=== PATIENT | female | born 1930 | race Caucasian/White ===

== ENCOUNTER → 2019-08-31 | Day surgery (SDC) | payer MEDICARE, OTHER ==
[2019-08-25 15:27] LABS: BASOPHILS # (AUTO) 0.1 (0.0-0.1); BASOPHILS % 0.7 % (0.0-1.0); EOSINOPHILS # (AUTO) 0.2 (0.0-0.4); EOSINOPHILS % 2.6 % (0.0-6.0); HEMATOCRIT 39.4 % (34.2-44.1); HEMOGLOBIN 12.8 g/dL (12.0-16.0); LYMPHOCYTES # (AUTO) 2.5 (1.0-3.2); LYMPHOCYTES % 34.3 % (18.0-39.1); MEAN CORPUSCULAR HGB CONC 32.5 g/dL (31-35); MEAN CORPUSCULAR VOLUME 89.3 fL (81-99); MONOCYTES # (AUTO) 0.7 (0.2-0.8); MONOCYTES % 9.7 % (4.4-11.3); NEUTROPHILS # (AUTO) 3.8 (2.1-6.9); NEUTROPHILS % 52.4 % (38.7-80.0); PLATELET COUNT 264 x10e3/uL (140-360); RED BLOOD COUNT 4.41 x10e6/uL (3.6-5.1); RED CELL DISTRIBUTION WIDTH 12.8 % (11.7-14.4)
[2019-08-25 15:43] LABS: ANION GAP 12.6 mmol/L (8-16); CALCIUM 9.5 mg/dL (8.4-10.2); CREATININE, SERUM 1.06 mg/dL (0.57-1.11); POTASSIUM 3.6 mmol/L (3.5-5.1)
--- NOTE | 2019-08-25 15:59 | Diagnostic Imaging Report ---
EXAM: CHEST 2 VIEWS DATE: 08/25/2019 3:40 PM INDICATION: Preoperative evaluation COMPARISON: None FINDINGS: The trachea is midline. Mildly increased opacities noted within the lung bases suggestive of atelectasis. The lungs are otherwise symmetrically expanded without evidence for large focal consolidation, pneumothorax, or significant pleural effusion. The cardiomediastinal silhouette is within normal limits. The thoracic aorta is tortuous and contains atherosclerotic calcifications. Degenerative changes and kyphosis noted of the visualized spine. No acute osseous abnormality is identified. The surrounding soft tissues are unremarkable. IMPRESSION: No acute cardiopulmonary process identified. Signed by: Dr. Jorge Quiroga MD on 08/25/2019 3:56 PM
[~2019-08-31] MED LIST: AMLODIPINE BESY10 MG PO; CEFAZOLIN SOD 1 GM/NS 50ML 100 ML IV ONE; DOCUSATE SODIU100 MG PO; LIDOCAINE HCL 2% LOCAL INJ 5 ML SDV VIAL INJ ONE; OLANZAPINE5 MG PO; PROPOFOL IV EMULSION 10 MG/ML 20 ML VIAL ONE; REMERON15 MG PO; ROBITUSSIN COU118 M4 PO; SENNA LAX8.6 MG PO; SEROQUEL25 MG PO; SEVOFLURANE INHAL SOLN 250 ML PEN BTL ONE; TRAZODONE HCL50 MG PO; ULTRAM50 MG PO
[2019-08-31 09:30] VITALS: BP 120/69
--- NOTE | 2019-08-31 14:08 | Operative Report ---
DATE OF PROCEDURE: 08/31/2019 SURGEON: OLIVE KOHLI MD LOCATION: Place of surgery is [facility]. HISTORY: The patient is an 88-year-old female who sustained a trip and fall sustaining a complete and displaced comminuted midshaft, radial shaft fracture. After a lengthy and in-depth discussion with the patient's guardian, as well as the guardian's , they have elected to proceed on with conservative treatment and they only wished to stabilize the fracture with a closed reduction and short and long arm casting. The risks and benefits of surgery have been outlined to both of them and the patient's guardian consisting but not limited to the following: Infection, blood loss, nerve, vessel or tendon injury. More importantly, given the close reduction and conservative treatment that the fracture itself may not be perfectly aligned that she still may have underlying deformity, again the risks of nonunion and malunion were conveyed to them, skin breakdown from the cast. The possible need for additional surgery, and informed consent was obtained. The patient was seen and identified in the preoperative holding area. The patient's guardian, was there and present. The patient's right forearm and upper arm were marked by myself and she agreed along with nursing staff. The patient was then brought back to the operative suite. Time-out was taken for Alicia Princess for a closed reduction with manipulation under anesthesia of the right radial shaft with placement of a long-arm cast. All were in agreement including nursing staff, anesthesia and myself. After the patient was successfully intubated and relaxed, C-arm fluoroscopy was brought in to examine the fracture. Once again, there was some marked comminuted fracture of the mid radial shaft with volar apex angulation. The patient's right forearm and upper arm were sterilely prepped and draped and cleaned with alcohol. The patient had complete healing of abrasions over her wrist and ulnar styloid. There were no other open abrasions or lesions. [place] was placed on and then the patient was placed in multiple layers of [place] from the hand and wrist all the way up to the upper arm beneath the axilla and the entire extremity was well padded. Maintaining neutral flexion of the elbow, I was able to do a closed reduction, reducing the deformity as best as I could given the marked comminution. Upon which time, after the longitudinal traction, manipulation and reduction, the patient was placed in a well-molded long-arm cast. The long arm cast reduction was maintained with three-point fixation and was held reduce and confirm under fluoroscopy. There was significant marked improvement in regard to the angulation, however, the patient still has some volar apex angulation and just some mild shortening given the oblique nature of the fracture and comminution, but otherwise marked improvement overall. In the cast, the fracture was stable. The patient was then successfully extubated and transferred to the PACU. PREOPERATIVE DIAGNOSIS: Comminuted displaced right radial shaft fracture. POSTOPERATIVE DIAGNOSIS: Comminuted displaced right radial shaft fracture. PROCEDURES: 1. Closed reduction with manipulation under anesthesia of the right radial shaft. 2. Placement of a long-arm cast of the right upper arm for displaced right radial shaft fracture. ANESTHESIA: General. ESTIMATED BLOOD LOSS: None. COMPLICATIONS: None. CONDITION: Stable to PACU. The patient was seen in PACU. Dressings were clean and dry. Capillary refills are brisk. Her pain is well controlled. The intraoperative findings were reviewed and discussed with the patient's guardian. The patient is to maintain cast care with elevation, not to get the cast wet, to keep the arm up elevated to control her edema. The patient will follow up in [facility] in 6 to 8 weeks, at which time we will remove the cast and repeat x-rays, two views of her right forearm. The patient was discharged home with [place] for pain control. All questions were answered to the framing carpenter and guardian's satisfaction. Discharge instructions were also discussed with nursing staff. MD ZACHARY TAPIA/DONAVAN /[id number] TOMA
== END | disposition home or self-care (01) ==
LOC: OR 05:55
PROVIDERS: ATTEND Orthopaedic Surgery
DX: S52.351A Displaced comminuted fracture of shaft of radius, right arm, initial encounter for closed fracture (principal); I10 Essential (primary) hypertension; G30.9 Alzheimer's disease, unspecified; F02.80 Dementia in other diseases classified elsewhere, unspecified severity, without behavioral disturbance, psychotic disturbance, mood disturbance, and anxiety; W18.09XA Striking against other object with subsequent fall, initial encounter; Y92.89 Other specified places as the place of occurrence of the external cause; Z01.810 Encounter for preprocedural cardiovascular examination; Z01.812 Encounter for preprocedural laboratory examination; Z01.818 Encounter for other preprocedural examination; Z11.59 Encounter for screening for other viral diseases; Z85.3 Personal history of malignant neoplasm of breast
CPT/HCPCS: 25505; 36415; 71046; 76000; 80048; 85025; 93005; J0690; J2001; J2704; U0002